=== PATIENT | male | born 1965 | race Caucasian/White ===

== ENCOUNTER 2018-10-23 21:34 | Emergency (ER) | payer SELFPAY ==
--- NOTE | 2018-10-23 21:38 | PDOC ---
History of Present Illness - General History Source: Patient Exam Limitations: No Limitations <Mt Shah - Last Filed: 10/23/18 23:02> <Saige Simpson - Last Filed: 10/27/18 02:32> - General Chief Complaint: Chest Pain Stated Complaint: CHEST PAIN Time Seen by Provider: 10/23/18 21:36 - History of Present Illness Initial Comments: 10/23/18 22:34 The patient is a 53 year old male with no past medical history here today for evaluation of epigastric pain. Patient reports that he ate spicy salsa around 6 pm and began to feel epigastric pain and chest tightness around 9 pm. Patient notes that he usually eats spicy foods and has intermittent heartburn. He reports taking tylenol today before coming to the ER and feeling better after burping. Patient denies headache, lightheadedness. Denies fever, chills. Denies shortness of breath. Denies nausea, vomiting, diarrhea, abdominal pain. Denies lower extremity edema. Allergies: ibuprofen Social history: Patient denies tobacco, alcohol, drug use Family history: HI (Patients father and mother due to HI) Surgical history: none PCP: none reported 10/23/18 23:02 (Mt Shah) Past History <Mt Shah - Last Filed: 10/23/18 23:02> <Saige Simpson - Last Filed: 10/27/18 02:32> - Past Medical History Allergies/Adverse Reactions: Allergies Allergy/AdvReac Type Severity Reaction Status Date / Time ibuprofen [From Motrin] Allergy Verified 10/23/18 21:36 Home Medications: Ambulatory Orders NK [No Known Home Medication] 10/23/18 Review of Systems - Review of Systems Able to Perform ROS?: Yes <Mt Shah - Last Filed: 10/23/18 23:02> <Saige Simpson - Last Filed: 10/27/18 02:32> - Review of Systems Comments:: 10/23/18 22:34 All systems are reviewed and negative except as noted in the HPI (Mt Shah) *Physical Exam <Mt Shah - Last Filed: 10/23/18 23:02> <Saige Simpson - Last Filed: 10/27/18 02:32> - Vital Signs Last Vital Signs Temp Pulse Resp BP Pulse Ox 97.7 F 66 16 115/79 98 10/23/18 21:42 10/23/18 21:42 10/23/18 21:42 10/23/18 21:42 10/23/18 21:42 - Physical Exam Comments: 10/23/18 22:50 GENERAL: Awake, alert, and fully oriented, in no acute distress HEAD: No signs of trauma EYES: PERRLA, EOMI, sclera anicteric, conjunctiva clear ENT: Auricles normal inspection, hearing grossly normal, nares patent, oropharynx clear without exudates. Moist mucosa NECK: Normal ROM, supple, no lymphadenopathy, JVD, or masses LUNGS: Breath sounds equal, clear to auscultation bilaterally. No wheezes, and no crackles HEART: Regular rate and rhythm, normal S1 and S2, no murmurs, rubs or gallops ABDOMEN: Soft, nontender, normoactive bowel sounds. No guarding, no rebound. No masses EXTREMITIES: Normal range of motion, no edema. No clubbing or cyanosis. No cords, erythema, or tenderness NEUROLOGICAL: Cranial nerves II through XII grossly intact. Normal speech, normal gait SKIN: Warm, Dry, normal turgor, no rashes or lesions noted. (Mt Shah) - Procedure Monitoring Vital Signs: Procedure Monitoring Vital Signs Temperature 97.7 F 10/23/18 21:42 Pulse Rate 66 10/23/18 21:42 Respiratory Rate 16 10/23/18 21:42 Blood Pressure 115/79 10/23/18 21:42 O2 Sat by Pulse Oximetry (%) 98 10/23/18 21:42 ED Treatment Course - LABORATORY CBC & Chemistry Diagram: 10/23/18 22:45 10/23/18 22:42 <Mt Shah - Last Filed: 10/23/18 23:02> - LABORATORY CBC & Chemistry Diagram: 10/23/18 22:45 10/23/18 22:42 <Saige Simpson - Last Filed: 10/27/18 02:32> - ADDITIONAL ORDERS Additional order review: 10/23/18 22:45 RBC 5.00 MCV 87.9 MCHC 32.6 RDW 13.2 MPV 7.9 Neutrophils % 43.0 Lymphocytes % 44.0 H Monocytes % 8.1 Eosinophils % 4.1 Basophils % 0.8 - Medications Given in the ED: ED Medications Discontinued Medications Generic Name Dose Route Start Last Admin Trade Name Cheryl PRN Reason Stop Dose Admin Famotidine 20 mg 10/23/18 22:50 10/23/18 22:59 Pepcid - PO 10/23/18 22:51 20 mg ONCE ONE Administration Medical Decision Making <Mt Shah - Last Filed: 10/23/18 23:02> <Saige Simpson - Last Filed: 10/27/18 02:32> - Medical Decision Making Documentation has been prepared under my direction and personally reviewed by me in its entirety. I attest that this documented accurately reflects all work, treatment, procedures and medical decision making performed by me. 12-lead electrocardiogram performed: Normal sinus rhythm at 64 bpm; there is incomplete right bundle branch block. However no evidence of acute ST or T- wave abnormalities is present. [place] and intervals are normal. No evidence of acute cardiac arrhythmia As noted above, this 53-year-old man with no significant past history and one risk factor for coronary artery disease (family history) presents with chest tightness soon after eating spicy salsa. He had some relief of his symptoms after burping prior to coming to the ER. No other associated symptoms. Exam as noted. As noted above 12-lead electrocardiogram was normal. CBC/chemistry profile/cardiac enzymes sent. Pepcid 40mg given orally. Laboratory evaluation is essentially normal without elevation of troponin. Patient felt complete resolution of symptoms after Pepcid PO Clinical presentation most consistent with atypical chest pain likely of gastrointestinal etiology such as GERD or mild gastritis/gastric inflammation. Patient will take Pepcid 20 mg daily and follow-up with his general doctor. He should return to the emergency room if he has persistent pain or experiences shortness of breath/palpitations. (Saige Simpson) *DC/Admit/Observation/Transfer <Mt Shah - Last Filed: 10/23/18 23:02> <Saige Simpson - Last Filed: 10/27/18 02:32> Diagnosis at time of Disposition: Atypical chest pain GERD (gastroesophageal reflux disease) Qualifiers: Esophagitis presence: with esophagitis Qualified Code(s): K21.0 - Gastro- esophageal reflux disease with esophagitis - Discharge Dispostion Disposition: HOME Condition at time of disposition: Stable - Patient Instructions Printed Discharge Instructions: GERD Diet Additional Instructions: Pepcid(famotidine) 20 mg daily Avoid foods that increase indigestion Return to ER if you have prolonged chest pain/shortness of breath Follow-up with your primary medical doctor within the next 5 days Print Language: LUX[place]BOURGISH - Attestations Scribe Attestion: 10/23/18 22:34 Documentation prepared by NATHEN Nolan, acting as medical tech for Saige Simpson MD. (Mt Shah)
[2018-10-23 21:47] VITALS: BP 115/79; PULSE 66; TEMP 97.7; BMI 28.3
[2018-10-23] MEDS ORDERED: FAMOTIDINE 20 MG TABLET PO ONE (22:50)
[2018-10-23 22:57] LABS: BASO % 0.8 % (0-2.0); EOS % 4.1 % (0-4.5); HEMATOCRIT 43.9 % (35.4-49); HEMOGLOBIN 14.3 GM/dl (11.7-16.9); MCH 28.7 pg (25.7-33.7); MCHC 32.6 g/dl (32.0-35.9); MEAN CELL VOLUME 87.9 fl (80-96); MEAN PLT VOLUME 7.9 fl (7.5-11.1); MONO % 8.1 % (3.8-10.2); PLATELET COUNT 369 K/MM3 (134-434); RDW 13.2 % (11.9-15.9); WHITE BLOOD COUNT 5.3 K/mm3 (4.0-10.8)
[2018-10-23] MEDS ORDERED: FAMOTIDINE 20 MG TABLET ONE (22:58)
[2018-10-23 23:14] LABS: ALBUMIN 4.1 g/dl (3.5-5.0); ALK PHOS 112 U/L (32-92); ANION GAP 5 MMOL/L (8-16); BILIRUBIN,TOTAL 0.3 mg/dl (0.2-1.0); BLOOD UREA NITROGEN 14 mg/dl (7-18); CALCIUM 8.8 mg/dl (8.4-10.2); CHLORIDE 104 mmol/L (98-107); CO2 24 mmol/L (22-28); CREATININE 0.8 mg/dl (0.6-1.3); GLUCOSE,RANDOM 129 mg/dl (74-106); POTASSIUM 3.6 mmol/L (3.5-5.1); SGOT/AST 38 U/L (10-42); SGPT/ALT 53 U/L (10-40); SODIUM 133 mmol/L (136-145); TOT PROT 7.1 g/dl (6.4-8.3)
--- NOTE | 2018-12-02 11:40 | EKG ---
Test Reason : Blood Pressure : / mmHG Vent. Rate : 064 BPM Atrial Rate : 064 BPM P-R Int : 176 ms QRS Dur : 096 ms QT Int : 400 ms P-R-T Axes : 032 -09 027 degrees QTc Int : 412 ms NORMAL SINUS RHYTHM INCOMPLETE RIGHT BUNDLE BRANCH BLOCK BORDERLINE ECG NO PREVIOUS ECGS AVAILABLE Confirmed by Meng Solomon MD ([id number]) on 12/02/2018 11:40:13 AM Referred By: DR SEVILLA Confirmed By:Meng Solomon MD
== END 2018-10-24 00:08 | disposition home or self-care (01) ==
LOC: FER 21:34
DX: K21.0 Gastro-esophageal reflux disease with esophagitis (principal)
CPT/HCPCS: 36415; 80053; 82550; 82553; 83690; 84484; 85025; 93005; 93010; 99282-25

== ENCOUNTER 2022-10-30 04:54 | Day surgery (SDC) | payer OTHER ==
[2022-10-26 16:24] VITALS: BMI 26.2
[2022-10-30 09:13] VITALS: TEMP 98.1
[2022-10-30 10:21] VITALS: BP 102/65; PULSE 64; RESP 20
== END 2022-10-30 10:30 | disposition home or self-care (01) ==
LOC: JASU-ENDO 04:54
PROVIDERS: ATTEND Student in an Organized Health Care Education/Training Program
PROC: 0DB78ZX Excision of Stomach, Pylorus, Via Natural or Artificial Opening Endoscopic, Diagnostic (ICD-10-PCS; 2022-10-30)
PROC: 0DB68ZX Excision of Stomach, Via Natural or Artificial Opening Endoscopic, Diagnostic (ICD-10-PCS; 2022-10-30)
PROC: 0DB98ZX Excision of Duodenum, Via Natural or Artificial Opening Endoscopic, Diagnostic (ICD-10-PCS; principal; 2022-10-30 09:00)
DX: K29.50 Unspecified chronic gastritis without bleeding (principal)
CPT/HCPCS: 88305-TC; 88342-TC